=== PATIENT | female | born 1970 | race Caucasian/White ===

== ENCOUNTER → 2024-05-01 | Outpatient (CLI) | payer BC | LOC: M WHC 12:14 | PROVIDERS: ATTEND Plastic Surgery Surgery of the Hand | DX: T85.44XA Capsular contracture of breast implant, initial encounter (principal); Z85.3 Personal history of malignant neoplasm of breast; R92.1 Mammographic calcification found on diagnostic imaging of breast; Y83.1 Surgical operation with implant of artificial internal device as the cause of abnormal reaction of the patient, or of later complication, without mention of misadventure at the time of the procedure ==

== ENCOUNTER 2025-02-01 06:24 | Observation (INO) | payer BC ==
[~2025-02-01] VITALS: Ht 154.9 cm; Wt 65.7 kg
[2025-02-01] VITALS (8 sets, daily range): BP systolic 112–143; BP diastolic 71–89; TEMP 97.3–98.4; O2SAT 92–100
[~2025-02-01 06:24] MED LIST: ACET500T15 PO; ALPR0.25 PO; MELO15TA28 PO
[2025-02-01] MEDS: LR 1,000 ML IV SCH ×2 (06:45→12:40)
[2025-02-01] MEDS ORDERED: fentaNYL 100 MCG/2 ML INJECTION As Ordered ONE (07:05)
[2025-02-01] MEDS ORDERED: MIDAZOLAM INJ 2MG/2ML VIAL As Ordered ONE (07:05)
[2025-02-01] MEDS ORDERED: propofoL 200 MG/20 ML VIAL As Ordered ONE (07:05)
[2025-02-01] MEDS ORDERED: ONDANSETRON 4MG 2ML VIAL As Ordered ONE (07:05)
[2025-02-01] MEDS ORDERED: LIDOCAINE 2% 100MG/5ML SDV (FOR ANES.) As Ordered ONE (07:05)
[2025-02-01] MEDS ORDERED: ROCURONIUM BROMIDE 50MG/5ML VIAL As Ordered ONE (07:05)
[2025-02-01] MEDS ORDERED: dexmedeTOMIDine (4MCG/ML)200MCG/50ML BTL (PRECEDEX) As Ordered ONE (07:05)
[2025-02-01] MEDS ORDERED: ePHEDrine SULFATE 25 MG/5 ML(5MG/ML) SYRINGE As Ordered ONE (07:14)
[2025-02-01] MEDS ORDERED: PHENYLephrine 500MCG 5ML (100MCG/ML) SYRINGE As Ordered ONE (07:15)
[2025-02-01] MEDS: HEPARIN SOD (PORCINE) 5000UNITS/ML 1ML VIAL/SYRINGE SQ ONE (08:20)
[2025-02-01] MEDS: ceFAZolin SOD 2 GM in IV 1 EA IV ONE (08:24)
[2025-02-01] MEDS ORDERED: ACETAMINOPHEN 1000MG/100ML IV BAG As Ordered ONE (08:29)
[2025-02-01] MEDS: EPINEPHrine INJ 1 MG/ML 1ML AMP As Ordered ONE (08:53)
[2025-02-01] MEDS: LIDOCAINE 1% MDV 20ML VIAL As Ordered ONE (08:53)
[2025-02-01] MEDS: GENTAMICIN SULF 80MG/2ML VIAL As Ordered ONE (08:55)
[2025-02-01] MEDS ORDERED: HYDROmorphone HCL 2MG/ML 1ML VIAL As Ordered ONE (08:56)
[2025-02-01] MEDS ORDERED: SUGAMMADEX SODIUM 500 MG/5 ML VIAL (BRIDION) As Ordered ONE (09:11)
[2025-02-01] MEDS ORDERED: GLYCOPYRROLATE INJ 0.2 MG/ML 2 ML VIAL As Ordered ONE (09:51)
[2025-02-01] MEDS: ceFAZolin 1GM VIAL As Ordered ONE (10:23)
[2025-02-01] MEDS: ceFAZolin 2 GM/D5W 50 ML IV BAG As Ordered ONE (12:10)
[2025-02-01] MEDS: BUPivacaine LIPOSOME/PF 266MG 20ML VIAL (13.3MG/ML)(EXPAREL) As Ordered ONE (12:17)
[2025-02-01] MEDS ORDERED: ONDANSETRON 4MG 2ML VIAL IV PRN ×2 (12:30→12:40)
[2025-02-01] MEDS ORDERED: fentaNYL 100 MCG/2 ML INJECTION IV PRN (12:30)
[2025-02-01] MEDS ORDERED: PERCOCET 5MG/325MG TAB PO PRN (12:40)
[2025-02-01] MEDS: oxyCODONE 5MG TAB PO PRN (13:13)
[2025-02-01] MEDS: HYDROMORPHONE HCL 0.5 MG/ 0.5 ML SYRINGE IV PRN (13:32)
[2025-02-01] MEDS: ceFAZolin SODIUM 2 GM in DEXTROSE 5% (D5W) ADV/MINI-BAG 50 ML IV SCH (16:36)
[2025-02-01] MEDS ORDERED: ALPRAZolam 0.25 MG TAB PO PRN (18:00)
[2025-02-01] MEDS: traMADol 50 MG TAB PO PRN (19:38)
[2025-02-01] MEDS: ACETAMINOPHEN 325 MG TAB PO PRN (21:02)
[2025-02-02] MEDS: ACETAMINOPH W/CODEINE #3 TAB UD PO PRN (02:59)
[2025-02-02 03:50] VITALS: BP 120/72; TEMP 97.9; O2SAT 100
[2025-02-02 08:00] VITALS: BP 123/68; TEMP 97.7; O2SAT 97
[2025-02-02] MEDS ORDERED: ACET-716 PO (11:21)
[2025-02-02 12:00] VITALS: BP 130/80; TEMP 97.9; O2SAT 98
[2025-02-02 12:21] VITALS: O2SAT 98
== END 2025-02-02 13:20 | disposition home or self-care (01) ==
LOC: M SDC 06:24 → M RR INP 06:25 → M MS5PR 14:48
PROVIDERS: ADMIT Plastic Surgery Surgery of the Hand; ATTEND Plastic Surgery Surgery of the Hand
DX: N65.1 Disproportion of reconstructed breast (principal); T85.44XA Capsular contracture of breast implant, initial encounter; Y81.2 Prosthetic and other implants, materials and accessory general- and plastic-surgery devices associated with adverse incidents; Z85.3 Personal history of malignant neoplasm of breast; Z90.13 Acquired absence of bilateral breasts and nipples; Z92.21 Personal history of antineoplastic chemotherapy; Z92.3 Personal history of irradiation; Z87.891 Personal history of nicotine dependence; Z79.899 Other long term (current) drug therapy
CPT/HCPCS: 11970; 15771; 15772; 19342; 19380; 88300; 88302; J0131; J0171; J0665; J0666; J0690; J1100; J1171; J1580; J1596; J2250; J2371; J2405; J3010; L8600

== ENCOUNTER → 2025-11-16 | Outpatient (CLI) | payer BC ==
[~2025-11-16] MED LIST changes: +ACET-716 PO
== END ==
LOC: M RAD 13:52
PROVIDERS: ATTEND Plastic Surgery Surgery of the Hand
DX: D17.1 Benign lipomatous neoplasm of skin and subcutaneous tissue of trunk (principal)